=== PATIENT | female | born 1970 | race Caucasian/White ===

== ENCOUNTER → 2019-09-23 | Outpatient (CLI) | payer OTHER ==
--- NOTE | 2019-09-23 19:24 | Diagnostic Imaging Report ---
INDICATION: Missed six-month follow-up. Comparison made with prior examinations from 06/25/2015, 12/28/2014, and 10/18/2010. FINDINGS: The fibroglandular tissue is heterogeneously dense bilaterally. There are scattered benign-type calcifications. There is no dominant mass, spiculated lesion, or suspicious calcification identified. The skin, nipples, and axillae are unremarkable. IMPRESSION: Benign. ACR BI-RADS Category 2: Benign findings. Result letter will be mailed to the patient. Note: At least 10% of breast cancer is not imaged by mammography. Dictated by: Dictated on workstation # [id number]
== END ==
LOC: RAD 09:02
PROVIDERS: ATTEND Nurse Practitioner Primary Care
DX: Z01.419 Encounter for gynecological examination (general) (routine) without abnormal findings (principal); Z12.31 Encounter for screening mammogram for malignant neoplasm of breast
CPT/HCPCS: 77066

== ENCOUNTER 2023-04-02 09:43 | Emergency (ER) | payer OTHER ==
[~2023-04-02] VITALS: Ht 160 cm; Wt 77.0 kg
[2023-04-02] MEDS ORDERED: NS IV 1000 ML 1,000 ML IV STA (10:23)
--- NOTE | 2023-04-02 10:24 | ED General ---
General Chief Complaint: General Problems/Pain Stated Complaint: TICK BITE 03/27/23 | FEVER Nursing Triage Note: PT AMB TO [facility] WITH C/O N/V, LANE AND FEVER AT HOME SINCE LAST WEEK. PT STATES HER SO FOUND A TICK IN HER GROIN AREA LAST SATURDAY AND HAS FELT SICK SINCE. PT SEEN AT [facility] AND [facility] AND GIVEN FLUIDS AND ZOFRAN Source of Information: Patient Exam Limitations: No Limitations History of Present Illness Date Seen by Provider: April 02, 2023 Time Seen by Provider: 10:15 Initial Comments Patient is a 52-year-old female who presents to the emergency room with a chief complaint of fever she states up to 105 over the last several days, nausea, vomiting, headache and body aches. Patient states that she started feeling very sick this past Saturday. She was seen at [facility] and had IV fluids late Saturday night. She was also seen at [facility] on Saturday and had fluids. She is concerned because last Saturday she found a tick in her right groin. She is not sure how long it was present and a month ago she also had a tick on her left shoulder blade that was big and fat and she does not know how long that was on her as well. She has taken Tylenol around 8 to 9 AM this morning. She had Zofran around 2 AM. She states she vomits multiple times a day. She is trying to hold down water and ice chips. She denies any rashes, swelling. No diarrhea, she has not had a bowel movement in a couple of days because she has not been able to hold down food. She does feel lightheaded and dizzy when she stands up. She had a nephrectomy 2 months ago at for severe kidney stones. She is quite anxious due to only having 1 kidney and the possibility that she may have a tickborne illness. She is requesting a tick panel. Timing/Duration: 4-5 Days Severity: Severe Associated Systoms: Fever/Chills, Headaches, Loss of Appetite, Malaise, Nausea/Vomiting, Weakness Allergies and Home Medications Allergies Coded Allergies: No Known Drug Allergies (Unverified , 12/05/12) Patient Home Medication List Home Medication List Reviewed: Yes Review of Systems Review of Systems Constitutional: see HPI, fever, malaise EENTM: no symptoms reported Respiratory: no symptoms reported Cardiovascular: no symptoms reported Gastrointestinal: nausea, vomiting Genitourinary: no symptoms reported Musculoskeletal: other (body aches) Skin: no symptoms reported Psychiatric/Neurological: Headache All Other Systems Reviewed Negative Unless Noted: Yes Past Teoaswn-Klzgqy-Mlyrqe Hx Patient Social History Tobacco Use?: No Substance use?: Yes Substance type: Marijuana Alcohol Use?: No Pt feels they are or have been: No Past Medical History Surgery/Hospitalization HX: DM, HLD, BLADDER KIDNEY REMOVAL DUE TO STONE, JAW SURGERY, , HERNIA, JULIA Reproductive Disorders: Yes (PCOS) Physical Exam Vital Signs Vital Signs - First Documented 04/02/23 09:52 Temp 37.2 Pulse 115 Resp 18 B/P (MAP) 148/73 (98) Pulse Ox 99 O2 Delivery Room Air Capillary Refill : Height, Weight, BMI Height: '" Weight: lbs. oz. kg; 30.00 BMI Method: General Appearance: WD/WN, Anxious Eyes: Bilateral Eye Normal Inspection, Bilateral Eye PERRL, Bilateral Eye EOMI HEENT: Other (dry mucous membranes) Neck: Normal Inspection, Other (no meningismus) Respiratory: Lungs Clear, Normal Breath Sounds, No Accessory Muscle Use, No Respiratory Distress Cardiovascular: Regular Rate, Rhythm, Normal Peripheral Pulses, Tachycardia (112) Gastrointestinal: Normal Bowel Sounds, Non Tender, Soft Extremity: Normal Capillary Refill, Normal Inspection, Normal Range of Motion, Non Tender, No Calf Tenderness, No Pedal Edema Neurologic/Psychiatric: Alert, Oriented x3, No Motor/Sensory Deficits, reimbursement rep II- XII Norm as Tested, Other (anxious) Skin: Normal Color, Warm/Dry Progress/Results/Core Measures Suspected Sepsis SIRS Temperature: Pulse: 115 Respiratory Rate: 18 Laboratory Tests 04/02/23 10:30: White Blood Count 3.5L Blood Pressure 148 /73 Mean: 98 Laboratory Tests 04/02/23 10:30: Creatinine 1.29, Platelet Count 143, Total Bilirubin 1.3H Results/Orders Lab Results Laboratory Tests Test 04/02/23 10:30 04/02/23 11:32 Range/Units White Blood Count 3.5 L 4.3-11.0 10^3/uL Red Blood Count 3.69 L 3.80-5.11 10^6/uL Hemoglobin 11.6 11.5-16.0 g/dL Hematocrit 33 L 35-52 % Mean Corpuscular Volume 89 80-99 fL Mean Corpuscular Hemoglobin 31 25-34 pg Mean Corpuscular Hemoglobin Concent 35 32-36 g/dL Red Cell Distribution Width 13.9 10.0-14.5 % Platelet Count 143 130-400 10^3/uL Mean Platelet Volume 9.8 9.0-12.2 fL Immature Granulocyte % (Auto) 1 % Neutrophils (%) (Auto) 74 42-75 % Lymphocytes (%) (Auto) 12 12-44 % Monocytes (%) (Auto) 12 0-12 % Eosinophils (%) (Auto) 0 0-10 % Basophils (%) (Auto) 0 0-10 % Neutrophils # (Auto) 2.6 1.8-7.8 10^3/uL Lymphocytes # (Auto) 0.4 L 1.0-4.0 10^3/uL Monocytes # (Auto) 0.4 0.0-1.0 10^3/uL Eosinophils # (Auto) 0.0 0.0-0.3 10^3/uL Basophils # (Auto) 0.0 0.0-0.1 10^3/uL Immature Granulocyte # (Auto) 0.0 0.0-0.1 10^3/uL Neutrophils % (Manual) 79 % Lymphocytes % (Manual) 14 % Monocytes % (Manual) 6 % Band Neutrophils 1 % Platelet Estimate ADEQUATE Blood Morphology Comment NORMAL Sodium Level 133 L 135-145 MMOL/L Potassium Level 3.9 3.6-5.0 MMOL/L Chloride Level 99 98-107 MMOL/L Carbon Dioxide Level 20 L 21-32 MMOL/L Anion Gap 14 5-14 MMOL/L Blood Urea Nitrogen 15 7-18 MG/DL Creatinine 1.29 0.60-1.30 MG/DL Estimat Glomerular Filtration Rate 50 BUN/Creatinine Ratio 12 Glucose Level 138 H 70-105 MG/DL Calcium Level 9.5 8.5-10.1 MG/DL Corrected Calcium 9.4 8.5-10.1 MG/DL Total Bilirubin 1.3 H 0.1-1.0 MG/DL Aspartate Amino Transf (AST/SGOT) 44 H 5-34 U/L Alanine Aminotransferase (ALT/SGPT) 37 0-55 U/L Alkaline Phosphatase 95 40-136 U/L Total Protein 7.8 6.4-8.2 GM/DL Albumin 4.1 3.2-4.5 GM/DL Urine Color YELLOW Urine Clarity CLEAR Urine pH 6.0 5-9 Urine Specific Rainbow 1.015 L 1.016-1.022 Urine Protein 1+ H NEGATIVE Urine Glucose (UA) NEGATIVE NEGATIVE Urine Ketones 1+ H NEGATIVE Urine Nitrite NEGATIVE NEGATIVE Urine Bilirubin NEGATIVE NEGATIVE Urine Urobilinogen 1.0 < = 1.0 MG/DL Urine Leukocyte Esterase TRACE H NEGATIVE Urine RBC (Auto) NEGATIVE NEGATIVE Urine RBC RARE /HPF Urine WBC RARE /HPF Urine Squamous Epithelial Cells 25-50 H /HPF Urine Crystals NONE /LPF Urine Bacteria NEGATIVE /HPF Urine Casts NONE /LPF Urine Mucus SMALL H /LPF Urine Culture Indicated NO My Orders Orders - MANUEL CULVER MD Tick Panel With Lyme Eia (04/02/23 10:23) Ed Iv/Invasive Line Start (04/02/23 10:23) Cbc With Automated Diff (04/02/23 10:23) Comprehensive Metabolic Panel (04/02/23 10:23) Ns Iv 1000 Ml (Sodium Chloride 0.9%) (04/02/23 10:23) Manual Differential (04/02/23 10:30) Urinalysis (04/02/23 11:19) Vital Signs/I&O 04/02/23 09:52 Temp 37.2 Pulse 115 Resp 18 B/P (MAP) 148/73 (98) Pulse Ox 99 O2 Delivery Room Air Capillary Refill : Blood Pressure Mean: 98 Progress Note : Time: 12:14 Progress Note Patient seen and evaluated by me. Evaluation today includes physical exam, CBC, basic metabolic panel, urinalysis. Pertinent physical exam findings well- developed well-nourished female in mild distress due to anxiety about health. Heart is regular, tachycardic. Lungs are clear. Oral mucosa is dry. Abdomen is soft, nontender. No CVA tenderness. No edema in her lower extremities or calf tenderness. Patient has no rashes, no erythema or signs of infection of the previously reported tick bites to the right groin and left shoulder blade. No focal neurologic deficits. The patient has no meningismus. Differential diagnosis based on history and physical exam, urinary tract infection, acute kidney injury, bacteremia, tickborne illness, viral syndrome. Laboratory studies reviewed by me. CBC shows a white blood cell count of 3.5 with hemoglobin and hematocrit 11.6 and 33. Platelets are 143. Chemistry shows a sodium of 133, BUN and creatinine of 15 and 1.29, serum glucose 138. Total bili is 1.3, AST 44 ALT 37, normal alk phos. Urinalysis shows a specific gravit y of 1.015 with 1+ protein and ketones. Trace leukocyte Estrace with 25-50 squamous epithelial cells, negative for bacteria. Patient is treated in the emergency department with Zofran and 2 L of normal saline. On reevaluation she feels much much better. Her headache is gone. Her vital signs are improved. No concerning findings for urinary tract infection or acute kidney injury. Low clinical suspicion for bacteremia/sepsis. Tick panel was sent off and I talked to the patient about those results coming back in the next 2 to 3 days. Until that time recommend supportive care, Zofran, fluids and Tylenol. She is comfortable with the plan of care will make a follow-up appoint with her primary care provider. I am sending the chart to her clinic. All questions are sought and answered. Patient is stable for discharge. Departure Impression Primary Impression: Dehydration Disposition: 01 HOME, SELF-CARE Condition: Improved Departure-Patient Inst. Decision time for Depature: 12:09 Referrals: SYDNI ROY APRN (PCP/Family) Primary Care Physician Patient Instructions: Dehydration, Adult (DC) Add. Discharge Instructions: Continue to push fluids so that you stay well-hydrated. Take your Tylenol extra strength, 2 tablets every 6 hours for any temperature over 100.4. Use the ondansetron/Zofran for nausea as directed. If you develop a rash with fever please return to the emergency department for reevaluation. It will take at least 48 hours for your tick panel to come back. If it is positive for tickborne illness we will contact you and start antibiotics. You might let your primary care provider's office know that we have sent a tick panel for you today. Scripts No Active Prescriptions or Reported Meds Copy Copies To 1: MICHEAL PHOENIX KATHRYN M MD April 02, 2023 10:24
[2023-04-02 10:37] LABS: BASOPHILS % (AUTO) 0 % (0-10); EOSINOPHILS % (AUTO) 0 % (0-10); HEMATOCRIT 33 % (35-52); HEMOGLOBIN 11.6 g/dL (11.5-16.0); LYMPHOCYTES # (AUTO) 0.4 10^3/uL (1.0-4.0); LYMPHOCYTES % (AUTO) 12 % (12-44); MEAN CORPUSCULAR HEMOGLOBIN 31 pg (25-34); MEAN CORPUSCULAR HGB CONC 35 g/dL (32-36); MEAN CORPUSCULAR VOLUME 89 fL (80-99); MEAN PLATELET VOLUME 9.8 fL (9.0-12.2); MONOCYTES # (AUTO) 0.4 10^3/uL (0.0-1.0); MONOCYTES % (AUTO) 12 % (0-12); NEUTROPHILS # (AUTO) 2.6 10^3/uL (1.8-7.8); NEUTROPHILS % (AUTO) 74 % (42-75); PLATELET COUNT 143 10^3/uL (130-400); WHITE BLOOD COUNT 3.5 10^3/uL (4.3-11.0)
[2023-04-02 10:45] LABS: ALBUMIN 4.1 GM/DL (3.2-4.5); POTASSIUM 3.9 MMOL/L (3.6-5.0)
[2023-04-02 10:46] LABS: CALCIUM 9.5 MG/DL (8.5-10.1)
[2023-04-02 10:48] LABS: TOTAL PROTEIN 7.8 GM/DL (6.4-8.2)
[2023-04-02 10:49] LABS: BILIRUBIN,TOTAL 1.3 MG/DL (0.1-1.0)
[2023-04-02 10:51] LABS: CREATININE SERUM 1.29 MG/DL (0.60-1.30)
[2023-04-02 11:01] LABS: BAND NEUTROPHILS 1 %; LYMPHOCYTES % (MANUAL) 14 %; MONOCYTES % (MANUAL) 6 %; NEUTROPHILS % (MANUAL) 79 %
[2023-04-02 11:02] LABS: PLATELET ESTIMATE ADEQUATE; RBC MORPH NORMAL
[2023-04-02 11:42] LABS: BILIRUBIN,URINE NEGATIVE (NEGATIVE); CLARITY,URINE CLEAR; COLOR,URINE YELLOW; GLUCOSE, URINE (UA) NEGATIVE (NEGATIVE); KETONES,URINE 1+ (NEGATIVE); LEUKOCYTE ESTERASE ,URINE TRACE (NEGATIVE); NITRITE,URINE NEGATIVE (NEGATIVE); PROTEIN,URINE 1+ (NEGATIVE)
[2023-04-02 11:49] LABS: BACTERIA,URINE NEGATIVE /HPF; RBC,URINE RARE /HPF; SQUAMOUS EPITHELIAL CELL,UR 25-50 /HPF; WBC,URINE RARE /HPF
[2023-04-02 12:16] VITALS: BP 125/75
== END 2023-04-02 12:17 | disposition home or self-care (01) ==
LOC: EDUNIT# 09:43 → ER 09:47
DX: E86.0 Dehydration (principal); R00.0 Tachycardia, unspecified; E11.9 Type 2 diabetes mellitus without complications; Z87.19 Personal history of other diseases of the digestive system
CPT/HCPCS: 36415; 80053; 81000; 85007; 85027; 86618; 86666; 86668; 86757